=== PATIENT | female | born 1950 | race Caucasian/White ===

== ENCOUNTER → 2018-04-13 | Outpatient (CLI) | payer OTHER, MEDICARE ==
[~2018-04-13] MED LIST: ESTR2 PO; LISI5 PO; MEDR2.5 PO; OMEP20ER PO; OXYB5 PO; PHENTERMINE
[2018-04-14 13:23] LABS: Stool Occult Bld Immuno 1 Negative (NEGATIVE); Stool Occult Bld Immuno 2 Negative (NEGATIVE)
== END | disposition home or self-care (01) ==
LOC: LAB 09:16 → LAB FUT 04-03 14:50
PROVIDERS: Internal Medicine Gastroenterology
DX: Z12.11 Encounter for screening for malignant neoplasm of colon (principal)
CPT/HCPCS: 82274

== ENCOUNTER → 2019-09-10 | Outpatient (CLI) | payer OTHER, MEDICARE | END | disposition home or self-care (01) | LOC: LAB 17:58 → LAB SHORT 17:58 | PROVIDERS: Hospitalist | DX: Z12.4 Encounter for screening for malignant neoplasm of cervix (principal) | CPT/HCPCS: G0145 ==

== ENCOUNTER → 2023-01-08 | Outpatient (CLI) | payer OTHER | END | disposition home or self-care (01) | LOC: LAB 09:15 → LAB SHORT 09:15 | PROVIDERS: Hospitalist | DX: Z12.4 Encounter for screening for malignant neoplasm of cervix (principal) | CPT/HCPCS: G0145 ==

== ENCOUNTER → 2023-02-07 | Outpatient (CLI) | payer OTHER | LOC: PLD 11:32 → LAB SHORT 11:32 → LAB 11:32 | DX: D48.5 Neoplasm of uncertain behavior of skin (principal) | CPT/HCPCS: 88305 ==

== ENCOUNTER 2023-04-02 07:32 | Day surgery (SDC) | payer OTHER ==
[~2023-04-02] VITALS: Ht 149.9 cm; Wt 74.2 kg
[2023-04-02] MEDS ORDERED: ZOCOR20 MG (07:49)
[2023-04-02] MEDS ORDERED: LOSARTAN-HCTZ1 EAC3 (07:49)
[2023-04-02] MEDS ORDERED: TRAZ50 (07:55)
[2023-04-02] MEDS ORDERED: TESTOSTERONE75 G1 (07:57)
[2023-04-02] MEDS ORDERED: IBUP200 (07:58)
[2023-04-02 09:47] VITALS: BP 113/62
== END 2023-04-02 09:50 | disposition home or self-care (01) ==
LOC: ORSCSDS 07:32
PROVIDERS: Internal Medicine Gastroenterology
PROC: 0DJD8ZZ Inspection of Lower Intestinal Tract, Via Natural or Artificial Opening Endoscopic (ICD-10-PCS; principal; 2023-04-02 09:00)
DX: Z12.11 Encounter for screening for malignant neoplasm of colon (principal); K57.30 Diverticulosis of large intestine without perforation or abscess without bleeding; R13.10 Dysphagia, unspecified; Z87.891 Personal history of nicotine dependence; Z79.899 Other long term (current) drug therapy
CPT/HCPCS: J2704; J7120

== ENCOUNTER 2023-07-23 10:15 | Day surgery (SDC) | payer OTHER ==
[~2023-07-23] VITALS: Ht 152.4 cm; Wt 75.3 kg
[~2023-07-23 10:15] MED LIST changes: +IBUP200; +LOSARTAN-HCTZ1 EAC3; +TESTOSTERONE75 G1; +TRAZ50; +ZOCOR20 MG
[2023-07-23] MEDS ORDERED: CLIMARA1 EACH (10:28)
[2023-07-23] MEDS ORDERED: MEDR2.5 (10:28)
[2023-07-23] MEDS ORDERED: Lisinopril2.5 MG (10:28)
[2023-07-23] MEDS ORDERED: ZOLP6.25 (10:29)
[2023-07-23] MEDS ORDERED: IRON18 MG (10:29)
[2023-07-23] MEDS ORDERED: METR59TL (10:29)
[2023-07-23] MEDS ORDERED: NIAC500 (10:30)
[2023-07-23] MEDS ORDERED: ERGO400 (10:30)
[2023-07-23] MEDS ORDERED: Calcium Acetat667 MG (10:30)
[2023-07-23] MEDS ORDERED: MELA3 (10:31)
[2023-07-23] MEDS ORDERED: Vitamin C100 M1 (10:32)
[2023-07-23] MEDS ORDERED: FIBER500 MG (10:32)
[2023-07-23] MEDS ORDERED: CENTRUM SILVER1 EAC2 (10:32)
[2023-07-23] MEDS ORDERED: BENADRYL25 MG (10:32)
[2023-07-23 13:15] VITALS: BP 157/75
--- NOTE | 2023-07-23 13:17 | NUR ---
07/23/23 1317 Geri Yost IV WNL. PT TOLERATED WELL.
== END 2023-07-23 12:55 | disposition home or self-care (01) ==
LOC: ORSCSDS 10:15
PROVIDERS: Internal Medicine Gastroenterology
PROC: 0D757ZZ Dilation of Esophagus, Via Natural or Artificial Opening (ICD-10-PCS; principal; 2023-07-23 11:30)
PROC: 0DB68ZX Excision of Stomach, Via Natural or Artificial Opening Endoscopic, Diagnostic (ICD-10-PCS; principal; 2023-07-23 11:30)
PROC: 0DB58ZX Excision of Esophagus, Via Natural or Artificial Opening Endoscopic, Diagnostic (ICD-10-PCS; principal; 2023-07-23 11:30)
DX: R13.14 Dysphagia, pharyngoesophageal phase (principal); K57.30 Diverticulosis of large intestine without perforation or abscess without bleeding; K31.7 Polyp of stomach and duodenum; Z87.891 Personal history of nicotine dependence; Z79.899 Other long term (current) drug therapy
CPT/HCPCS: 88305; 88342; J2704; J7120

== ENCOUNTER 2024-09-23 08:42 | Day surgery (SDC) | payer OTHER ==
[~2024-09-23] VITALS: Ht 152.4 cm; Wt 67.5 kg
[~2024-09-23 08:42] MED LIST changes: +BENADRYL25 MG; +CENTRUM SILVER1 EAC2; +CLIMARA1 EACH; +Calcium Acetat667 MG; +ERGO400; +FIBER500 MG; +HYDROCHLOROTHIA25 MG PO; +IRON18 MG; +LOSA50 PO; +Lactated Ringer's 1,000 ML IV ONE; +Lisinopril2.5 MG; +MEDR2.5; +MELA3; +METR59TL; +NIAC500; +Vitamin C100 M1; -ZOCOR20 MG; +ZOCOR20 MG PO; +ZOLP6.25
[2024-09-23] MEDS ORDERED: TRAZ100 (09:14)
[2024-09-23] MEDS ORDERED: IBUP800 (09:15)
[2024-09-23] MEDS ORDERED: Lactated Ringer's 1,000 ML IV ONE (09:56)
[2024-09-23] MEDS ORDERED: FentaNYL Citrate 50 MCG/ML 2 ML Injection ONE (10:42)
[2024-09-23] MEDS ORDERED: Midazolam HCL 1 MG/ML 5MLVIAL ONE (10:42)
[2024-09-23] MEDS ORDERED: propofoL 50 ML IV ONE (10:42)
[2024-09-23 11:55] VITALS: BP 120/74
== END 2024-09-23 11:30 | disposition home or self-care (01) ==
LOC: ORSCSDS 08:42
PROVIDERS: Specialist
PROC: 0DB78ZX Excision of Stomach, Pylorus, Via Natural or Artificial Opening Endoscopic, Diagnostic (ICD-10-PCS; principal; 2024-09-23 10:15)
DX: K21.9 Gastro-esophageal reflux disease without esophagitis (principal); R13.10 Dysphagia, unspecified; K29.70 Gastritis, unspecified, without bleeding; J45.909 Unspecified asthma, uncomplicated; Z79.899 Other long term (current) drug therapy
CPT/HCPCS: 88305; 88342; C1769; J2250; J2704; J3010; J7120

== ENCOUNTER 2025-04-11 14:06 | Emergency (ER) | payer OTHER ==
[~2025-04-11] VITALS: Ht 152.4 cm; Wt 69.8 kg
[~2025-04-11 14:06] MED LIST changes: +IBUP800; -Lactated Ringer's 1,000 ML IV ONE; +TRAZ100
[2025-04-11 14:36] VITALS: BP 160/76
== END 2025-04-11 16:36 | disposition home or self-care (01) ==
LOC: ER 14:06
DX: M54.2 Cervicalgia (principal); E78.5 Hyperlipidemia, unspecified; I10 Essential (primary) hypertension; K21.9 Gastro-esophageal reflux disease without esophagitis; V43.62XA Car passenger injured in collision with other type car in traffic accident, initial encounter; Z87.891 Personal history of nicotine dependence; Z79.899 Other long term (current) drug therapy
CPT/HCPCS: 72125; 74177; 93005; 93010; 99284-25; Q9967